=== PATIENT | male | born 1995 | race Caucasian/White ===

== ENCOUNTER 2018-05-18 13:00 | Emergency (ER) | payer OTHER ==
[2018-05-18] MEDS ORDERED: Metoclopramide HCl 10 MG/2 ML VIAL ONE (13:37)
[2018-05-18] MEDS ORDERED: Sodium Chloride 0.9% 1,000 ML ONE ×2 (13:37→15:11)
[2018-05-18] MEDS ORDERED: diphenhydrAMINE 50 MG/ML VIAL ONE (13:37)
[2018-05-18 14:04] LABS: #Basophils 0.1 thou/uL (0.0-0.2); #Eosinphils 0.1 thou/uL (0.0-0.7); #Lymphocytes 1.5 thou/uL (1.20-3.40); #Monocytes 0.5 thou/uL (0.11-0.59); #Neutrophils 4.8 thou/uL (1.40-6.50); %Basophils 1.9 % (0.0-1.0); %Eosinophils 0.9 % (0.0-10.0); %Monocytes 7.5 % (0.0-10.0); %Neutrophils 68.7 % (42.0-75.0); Hemoglobin 16.5 g/dL (14.0-18.0); Mean Corpuscular HGB CONC 32.6 g/dL (32.0-36.0); Mean Corpuscular Hemoglobin 29.6 pg (27.0-31.0); Mean Corpuscular Volume 90.7 fL (78.0-98.0); Mean Platelet Volume 8.9 fL (7.4-10.4); Platelet Count 281 thou/uL (130-400); RBC Distribution Width 12.2 % (11.5-14.5); Red Blood Cell (RBC) Count 5.59 mill/uL (4.70-6.10)
--- NOTE | 2018-05-18 14:18 | CT ---
CT BRAIN WITHOUT CONTRAST: Date: 05/18/18 HISTORY: Headache. Dizziness. Nausea. FINDINGS: Comparison made with exam of 04/22/15. No evidence of acute infarct, hemorrhage, midline shift, or abnormal extra-axial fluid collections ar e seen. The ventricular size is normal and the basilar cisterns are patent. The bony calvarium is int act. The visualized paranasal sinuses and mastoid air cells are well aerated. IMPRESSION: No CT evidence of acute intracranial process. POS: C
[2018-05-18 14:28] LABS: ALT (SGPT) 65 U/L (8-55); AST (SGOT) 34 U/L (5-34); Albumin 4.9 g/dL (3.5-5.0); Alkaline Phosphatase 87 U/L (40-150); Anion Gap 16 mmol/L (10-20); BUN (Urea Nitrogen) 19 mg/dL (8.9-20.6); Bilirubin, Total 0.9 mg/dL (0.2-1.2); Calc. Creatinine Clearance 0 mL/min (70-130); Calcium 10.3 mg/dL (7.8-10.44); Carbon Dioxide 25 mmol/L (22-29); Chloride 101 mmol/L (98-107); Estimated GFR-MDRD 67; Globulin 3.1 g/dL (2.4-3.5); Glucose 93 mg/dL (70-105); Lipase 21 U/L (8-78); Potassium 4.1 mmol/L (3.5-5.1); Sodium 138 mmol/L (136-145)
--- NOTE | 2018-05-18 14:55 | RAD ---
FRONTAL CHEST 2 VIEWS ABDOMEN: PROVIDED CLINICAL HISTORY: Pain. FINDINGS: Correlation with chest radiograph 08/07/2016. Cardiac and mediastinal silhouette is unchanged in appe arance. No focal consolidation, pleural fluid, or pneumothorax apparent. No evidence for a pneumoperitoneum. The abdominal bowel gas pattern is nonspecific. No radiographic ally apparent urinary tract calculi. The osseous structures demonstrate no acute findings. IMPRESSION: 1. No evidence for an acute cardiopulmonary process. 2. Nonspecific bowel gas pattern. POS: [facility]
[2018-05-18 17:41] LABS: Troponin I Less than 0.010 ng/mL (< 0.028)
== END 2018-05-18 17:55 | disposition home or self-care (01) ==
LOC: NAV ERS 13:00
DX: E86.0 Dehydration (principal); R55 Syncope and collapse; F41.9 Anxiety disorder, unspecified; E03.9 Hypothyroidism, unspecified; F17.210 Nicotine dependence, cigarettes, uncomplicated; Z79.899 Other long term (current) drug therapy
CPT/HCPCS: 70450; 74022; 80053; 83690; 84484; 85025; 85379; 93005; 94760; 96361; 96365; 96375; J1200; J2765; J7050